=== PATIENT | male | born 1995 | race Caucasian/White ===

== ENCOUNTER 2017-10-30 22:57 | Emergency (ER) | payer OTHER ==
[2017-10-30 23:03] VITALS: TEMP 98.4
[2017-10-30] MEDS ORDERED: fentaNYL 100 MCG/2 ML INJ IVP ONE (23:10)
--- NOTE | 2017-10-30 23:34 | EDPHY ---
General - History Smoking Status: Never smoked Time Seen by Provider: 10/30/17 23:05 Narrative: CHIEF COMPLAINT: Right shoulder injury HISTORY OF PRESENT ILLNESS: Patient presents by EMS and is seen at time of arrival. He arrives with complaints of right shoulder pain with suspected dislocation. He was playing hockey just prior to arrival. He swung awkwardly at a puck and missed it. There was no direct contact or trauma. He felt a sudden onset of right shoulder pain. It is severe. He received 2 doses of IV fentanyl in route for a total of 200 mcg. He received 1 mg of IV Versed. His pain improved but is returning. No numbness or tingling. No weakness. CMS reportedly intact by EMS. No head injury or loss of conscious. No pain elsewhere. Does have previous right shoulder injuries remotely. No other associated complaints or modifying factors. ESTABLISHED ORTHOPEDIST: Does not recall their name REVIEW OF SYSTEMS: Ten systems reviewed and are negative unless otherwise noted in the HPI PAST MEDICAL HISTORY: Orthopedic injuries PAST SURGICAL HISTORY: No recent surgeries SOCIAL HISTORY: Nonsmoker. [employer] student. Originally from [place] FAMILY HISTORY: Noncontributory EXAMINATION General Appearance: Alert, no distress HEENT: Normocephalic atraumatic. Pupils equal round reactive Cardiovascular: Symmetric radial pulses 2+. Brisk cap refill in the right hand. Neurological: A&O, light sensation to the back of hands is symmetric. Normal 2 point sensation on the right hand. No wrist drop on the right hand. Interossei strength is symmetric Skin: Warm and dry, no rash. No petechiae or purpura. No puncture laceration Extremities: Obvious step-off of the right shoulder with significant tenderness. Range un testable. Range of motion of the right wrist and elbow intact. Neurovascular intact distal right shoulder pain. Psychiatric: Mood and affect normal DIFFERENTIAL DIAGNOSES: Including but not limited to shoulder sprain, dislocation, fracture dislocation , AC separation, AC sprain MDM: 11:05 p.m. Acute right-sided shoulder dislocation. He is neurovascular intact. He has no injury elsewhere. There is obvious step-off deformity. I have injected the shoulder with lidocaine and x-ray is pending. He is in no acute distress. 11:15 p.m. Closed reduction of the right shoulder with intra-articular injection of lidocaine and IV fentanyl only. No procedural sedation. Tolerated well. Postop film pending 11:30 p.m. Post reduction film has just been obtained. This shows successful reduction. Official interpretation is pending at this time. There may be a subtle Bankart lesion of the humeral head. 12:00 a.m. Radiologist has read this as successful reduction. No fracture by their interpretation. I re-evaluated the patient. He is awake alert no acute distress. No somnolence. Vital signs remained normal. He is neuro intact in a sling. We discussed discharge home with mandatory orthopedic follow-up. A disc will be provided should he choose to look up to his previous orthopedist was. I provided the on-call orthopedist information for him. He will be sent home with short course of Percocet and a prescription for 3 more days worth. We discussed ED precautions. PROCEDURE: Closed reduction of shoulder Consent: Verbal Location: Right shoulder dislocation Anesthesia: Intra-articular lidocaine, 1% plain, 7 mL. No procedural sedation Procedure: After time-out and good anesthesia, I applied downward traction on the arm with massage of the deltoid. After holding this for 10 min that I was able to reduce the shoulder without difficulty. This was tolerated well. Radial pulses are symmetric pre and postprocedure. He was kept in abduction with 90 degree flexion of the elbow and placed in a sling and swath. Complications: None Post-reduction film: Shows successful reduction as read by me. There may be a Bankart lesion. Radiology interpretation pending. SUPERVISION: Patient was independently examined, but I discussed the case with my secondary supervising physician Dr. Crum ED Precautions: Worsening pain. Erythema, edema, cyanosis, pallor, paresthesia or anesthesia. (Eber Mathew) PHYSICIAN DOCUMENTATION: The patient was evaluated and managed by the Physician Stevedoring Supervisor. My co- signature indicates that I have reviewed this chart and I agree with the findings and plan of care as documented. I am the secondary supervising physician. (Neida Crum) - Diagnostics Imaging Results: Imaging Impressions Shoulder X-Ray 10/30/17 22:59 Impression: 1. Anterior dislocation right humeral head. Shoulder X-Ray 10/30/17 23:15 Impression: 1. Good position of the right humeral head in the glenoid fossa postreduction. - Objective Vital Signs: Initial Vital Signs Temperature (C) 36.9 C 10/30/17 23:01 Heart Rate 70 10/30/17 23:01 Respiratory Rate 16 10/30/17 23:01 Blood Pressure 118/68 10/30/17 23:01 O2 Sat (%) 90 L 10/30/17 23:01 O2 Delivery Mode Room Air O2 (L/minute) 2 Allergies/Adverse Reactions: No Known Allergies Allergy (Unverified 10/30/17 23:03) Home Medications: Medication Instructions Recorded oxyCODONE HCL/ACETAMINOPHEN 1 each PO Q4-6PRN PRN #7 tablet 10/30/17 [Percocet 5-325 mg Tablet] Medications Given: Discontinued Medications Fentanyl (Sublimaze) 50 mcg IVP EDNOW ONE Stop: 10/30/17 23:11 Last Admin: 10/30/17 23:14 Dose: 50 mcg Oxycodone/Acetaminophen (Percocet 5/325mg Prepack#4) 1 btl TAKEHOME EDNOW ONE Stop: 10/30/17 23:36 Last Admin: 10/31/17 00:15 Dose: 1 btl Departure - Departure Disposition: Home, Routine, Self-Care Clinical Impression: Dislocation, shoulder closed Qualifiers: Encounter type: initial encounter Laterality: right Qualified Code(s): S43.004A - Unspecified dislocation of right shoulder joint, initial encounter Sprain of shoulder, right Qualifiers: Encounter type: initial encounter Shoulder sprain type: unspecified sprain Qualified Code(s): S43.401A - Unspecified sprain of right shoulder joint, initial encounter Condition: Good Instructions: Oxycodone/Acetaminophen (By mouth), Shoulder Dislocation (ED) Additional Instructions: 1. Pain medication as provided as needed 2. Contact the on-call orthopedist or established orthopedist for definitive care this week 3. ED precautions as discussed 4. Range of motion limitations as discussed and demonstrated Referrals: Pernell Cruz MD [Medical Doctor] - As per Instructions Prescriptions: oxyCODONE HCL/ACETAMINOPHEN [Percocet 5-325 mg Tablet] 1 each PO Q4-6PRN PRN #7 tablet PRN Reason: Pain, Breakthrough
[2017-10-30] MEDS ORDERED: OXYCODONE/APAP 5/325MG PREPACK#4 BTL TAKEHOME ONE (23:35)
[2017-10-31 00:21] VITALS: BP 111/79; PULSE 69; RESP 16; O2SAT 96
== END 2017-10-31 00:28 | disposition home or self-care (01) ==
PROC: 0RSJXZZ Reposition Right Shoulder Joint, External Approach (ICD-10-PCS; principal; 2017-10-30)
DX: S43.014A Anterior dislocation of right humerus, initial encounter (principal); S43.401A Unspecified sprain of right shoulder joint, initial encounter; X58.XXXA Exposure to other specified factors, initial encounter; Y93.22 Activity, ice hockey
CPT/HCPCS: 96374; A4565; J3010